=== PATIENT | female | born 1970 | race Caucasian/White ===

== ENCOUNTER → 2016-08-13 | Day surgery (SDC) | payer MEDICARE ==
[~2016-08-13] MED LIST: ALPR0.5T PO; CHOL10003 PO; HYDROMORPHONE 2 MG/ML VIAL. IV PRN; IV RINGERS,LACTATED 1000ML 1,000 ML IV SCH; LAMO100T5 PO; LAMO25TA5 PO; LEVO88TA2 PO; LIDOCAINE 1% 1 ML SYRINGE. ID PRN; LIDOCAINE 2% PF Vial for OR 5 ML VIAL. ONE; MORPHINE SULFATE 2 MG/ML DISP.SYRIN. IV PRN; MULT-208 PO; ONDANSETRON PF 4 MG/2 ML VIAL. IV PRN; PROCHLORPERAZINE 10 MG/2 ML VIAL. IV PRN; PROPOFOL 20 ML IV ONE; PROPOFOL 40 ML IV ONE; QUET100T4 PO; QUET150T PO; QUET200T4 PO; QUET400T4 PO
[2016-08-13 11:16] VITALS: BP 156/88
--- NOTE | 2016-08-14 16:13 | PATHOLOGY ---
PATHOLOGY REPORT * * * * * * * * FINAL DIAGNOSIS: A. Small bowel biopsy: - Mild to moderate nonspecific duodenitis with partial villus atrophy and without granulomas or specific features. B. Gastric biopsy, antrum: - Chronic gastritis, mild to moderate. C. Esophageal biopsy, distal esophagus: - Segments of hyperplastic squamous esophageal mucosa showing focal ulceration with granulation tissue and acute and chronic inflammation, and segment of gastric mucosa showing moderate chronic inflammation, consistent with reflux esophagitis with ulceration. D. Colon biopsy, descending colon polyp: - Diminutive tubular adenoma. E. Terminal ileum biopsy: - Mild nonspecific ileitis without granulomatous or specific features. COMMENT: Sections of the small bowel biopsy reveal segments of duodenal mucosa showing mild to moderate nonspecific active inflammation with partial villus atrophy. There are no granulomas or specific features. Sections of the gastric biopsy reveal gastric antral and antral/body transition mucosa showing congestion and mild to moderate chronic inflammation. An immunoperoxidase stain for Helicobacter is obtained. No Helicobacter organisms are identified. Sections of the distal esophageal biopsy reveal segments of hyperplastic squamous esophageal mucosa showing focal ulceration with granulation tissue and acute and chronic inflammation. There is also a segment of gastric mucosa showing moderate chronic inflammation. The findings are consistent with reflux esophagitis with ulceration. There is no evidence of Mejia's change, dysplasia or malignancy. Sections of the ascending colon biopsy reveal a diminutive tubular adenoma showing no high grade dysplasia or evidence of malignancy. Sections of the terminal ileum biopsy reveal segments of small intestine mucosa showing mild nonspecific active inflammation without granulomas or specific features. There are no sprue-like changes. (JPM:all; d/t: 08/14/2016) Special stain performed: immunoperoxidase stain for Helicobacter (B1) REPORT ELECTRONICALLY SIGNED BY: Moise Eldridge M.D. DATE/TIME: 08/14/2016 16:11 * * * * * * * * GROSS PATHOLOGY: A. Received in formalin labeled "Eugenie Euceda, small bowel," are two segments of covarrubias soft tissue measuring 0.5 x 0.4 x 0.1 cm in aggregate dimensions and ranging from 0.3 to 0.5 cm in maximum dimension. The specimen is submitted entirely in cassette A1. B. Received in formalin labeled "Eugenie Euceda, antrum," are two segments of covarrubias soft tissue measuring 0.5 x 0.5 x 0.1 cm in aggregate dimensions and ranging from 0.4 to 0.5 cm in maximum dimension. The specimen is submitted entirely in cassette B1. C. Received in formalin labeled "Eugenie Euceda, distal esophagus," are two segments of covarrubias soft tissue measuring 0.6 x 0.4 x 0.1 cm in aggregate dimensions and ranging from 0.2 to 0.6 cm in maximum dimension. The specimen is submitted entirely in cassette C1. D. Received in formalin labeled "Eugenie Euceda, ascending polyp," is a segment of covarrubias soft tissue measuring 0.2 cm in maximum dimension. The specimen is submitted entirely in cassette D1. E. Received in formalin labeled "Eugenie Euceda, terminal ileum," are two segments of covarrubias soft tissue measuring 0.5 x 0.4 x 0.1 cm in aggregate dimensions and ranging from 0.4 to 0.5 cm in maximum dimension. The specimen is submitted entirely in cassette E1. (CAA; 08/13/2016) INITIAL CPT CODE(S): A; 22033 B; 76535, 60873 C; 02044 D; 39781 E; 16251 Professional services [place] [place] [address] Technical services performed by [facility] at [address] [place] [address] [address] [place] [address]. SPECIMEN(S) RECEIVED: A.Small bowel B.Antrum C.Distal esophagus D.Ascending colon polyp E.Terminal ileum CLINICAL HISTORY: GERD, rectal bleed PATIENT: EUGENIE EUCEDA /AGE: 1206/25/1970 (Age: 46) PATIENT #: [id number] ALT CASE #: SPECIMEN COLLECTION DATE: 08/13/2016 SPECIMEN RECEIVED DATE: 08/13/2016 [facility] - [address] [place] [address] - PHONE: [phone] * * * END OF REPORT * * *
== END ==
LOC: ENDOS 07:55
PROVIDERS: ATTEND Internal Medicine Gastroenterology
DX: K63.5 Polyp of colon (principal); K64.0 First degree hemorrhoids; Z80.0 Family history of malignant neoplasm of digestive organs; Z86.010 Personal history of colon polyps; D64.9 Anemia, unspecified; F32.9 Major depressive disorder, single episode, unspecified; F41.9 Anxiety disorder, unspecified; M19.90 Unspecified osteoarthritis, unspecified site; J45.909 Unspecified asthma, uncomplicated; E03.9 Hypothyroidism, unspecified; Z72.89 Other problems related to lifestyle; Z98.51 Tubal ligation status; Z90.49 Acquired absence of other specified parts of digestive tract
CPT/HCPCS: 45380; J2704; 88305; 88342; G0641

== ENCOUNTER → 2018-06-30 | Day surgery (SDC) | payer MEDICARE, OTHER ==
[~2018-06-30] MED LIST changes: -HYDROMORPHONE 2 MG/ML VIAL. IV PRN; -LIDOCAINE 1% 1 ML SYRINGE. ID PRN; -LIDOCAINE 2% PF Vial for OR 5 ML VIAL. ONE; -MORPHINE SULFATE 2 MG/ML DISP.SYRIN. IV PRN; +OMEP40CA5 PO; -ONDANSETRON PF 4 MG/2 ML VIAL. IV PRN; -PROCHLORPERAZINE 10 MG/2 ML VIAL. IV PRN; -PROPOFOL 40 ML IV ONE
[2018-06-30 09:57] VITALS: BP 141/72
--- NOTE | 2018-07-01 14:10 | PATHOLOGY ---
[facility] Accession Number: [id number] . 01 Material submitted: . PART A: 2ND PORTION DUODENUM PART B: DUODENUM BULB PART C: GASTRIC ANTRUM PART D: DISTAL ESOPHAGUS . 01 Clinical history: . Celiac disease, GERD, Mejia's . 02 Diagnosis: A. Duodenal biopsy, second portion duodenum: - No significant pathologic abnormalities. . B. Duodenal biopsy, duodenal bulb: - No significant pathologic abnormalities. . C. Gastric biopsy, antrum: - Chronic gastritis, mild. . D. Esophageal biopsy, distal esophagus: - Segments of hyperplastic squamous esophageal mucosa and esophagogastric mucosa showing chronic inflammation, consistent with reflux esophagitis. [facility]/07/01/2018 . 02 Comment: Sections of the second portion of duodenum biopsy, where best oriented, display mucosal villi which show no sprue-like changes or significant inflammatory changes. . Sections of the duodenal bulb biopsy, where best oriented, display mucosal villi which show no sprue-like changes or significant inflammatory changes. . Sections of the gastric antral biopsy show congestion and mild chronic inflammation. A properly controlled immunoperoxidase stain for Helicobacter is negative for Helicobacter organisms. . Sections of the distal esophageal biopsy reveal segments of hyperplastic squamous esophageal mucosa and esophagogastric mucosa showing mild to moderate chronic inflammation. The squamous esophageal mucosa shows a few intraepithelial neutrophils and eosinophils. The findings are consistent with reflux esophagitis. There is no evidence of Mejia's change, dysplasia, or malignancy. (JPM:[facility] 07/01/2018) . Special stain: Immunoperoxidase for Helicobacter on C1. . 02 Electronically signed: . Moise Eldridge MD, Pathologist NPI- [id number] . 01 Gross description: . A. The specimen is received in formalin, labeled "Eugenie Lazcano, second portion duodenum" and consists of 4 fragments of soft pink-covarrubias tissue measuring between 0.2 x 0.2 x 0.1 cm and 0.4 x 0.2 x 0.1 cm. They are entirely submitted in A1. . B. The specimen is received in formalin, labeled "Eugenie Lazcano, duodenum bulb" and consists of 2 fragments of soft covarrubias tissue measuring 0.5 x 0.2 x 0.1 cm each. They are entirely submitted in B1. . C. The specimen is received in formalin, labeled "Eugenie Lazcano, gastric antrum" and consists of a fragment of covarrubias tissue measuring 0.5 x 0.2 x 0.1 cm which is entirely submitted in C1. . D. The specimen is received in formalin, labeled "Eugenie Lazcano, distal esophagus" and consists of 3 fragments of soft covarrubias tissue measuring between 0.3 x 0.2 x 0.1 cm and 0.5 x 0.2 x 0.1 cm. They are entirely submitted in D1. (SDY; 06/30/2018) SYU/SYU . 02 Pathologist provided ICD-10: K29.50, K21.0 . 02 CPT . 498795, 073555, 948982, 915868, L10614 Specimen Comment: A courtesy copy of this report has been sent to Specimen Comment: [phone], . Specimen Comment: Report sent to / DR BROWN Specimen Comment: A duplicate report has been generated due to demographic updates. Performed at: 01 [facility] [address], [place], [place] [id number] MD Robert Kraft MD Phone: [phone] Performed at: 02 [facility] [address], [place] [id number] MD Moise Eldridge MD Phone: [phone]
== END | disposition home or self-care (01) ==
LOC: ENDOS 07:30
PROVIDERS: ATTEND Internal Medicine Gastroenterology
DX: K21.0 Gastro-esophageal reflux disease with esophagitis (principal); K29.50 Unspecified chronic gastritis without bleeding; K31.89 Other diseases of stomach and duodenum; E03.9 Hypothyroidism, unspecified; F32.9 Major depressive disorder, single episode, unspecified; F41.9 Anxiety disorder, unspecified; Z88.5 Allergy status to narcotic agent; E66.9 Obesity, unspecified; Z68.38 Body mass index [BMI] 38.0-38.9, adult; Z86.010 Personal history of colon polyps; M19.90 Unspecified osteoarthritis, unspecified site; Z83.3 Family history of diabetes mellitus; Z83.71 Family history of colonic polyps; Z82.3 Family history of stroke; Z72.89 Other problems related to lifestyle; Z79.899 Other long term (current) drug therapy; Z98.51 Tubal ligation status; Z90.49 Acquired absence of other specified parts of digestive tract; Z98.890 Other specified postprocedural states; Z90.710 Acquired absence of both cervix and uterus
CPT/HCPCS: 43239; 88305; 88342; J2704